=== PATIENT | female | born 1980 | race Caucasian/White ===

== ENCOUNTER 2023-10-01 12:53 | Day surgery (SDC) | payer BC ==
[2023-10-01] MEDS ORDERED: ALPRAZolam 0.5 MG TAB PO STA (13:16)
[2023-10-01 13:42] VITALS: TEMP 98
--- NOTE | 2023-10-01 14:48 | US ---
EXAMINATION TYPE: US FNA first lesion, US FNA each additional lesion DATE OF EXAM: 10/01/2023 2:38 PM CLINICAL INDICATION:Female, 43 years old with history of E04.2 NONTOXIC MULTINODULAR GOITER; , thyroi d nodule. COMPARISON: None ATTENDING: Dr. Aniket Malone PROCEDURE: 2 site thyroid biopsy. Informed consent was obtained. The risks and benefits of the procedure were discussed with the patien t. The site was marked. Timeout procedure was performed Ultrasound imaging of the thyroid demonstrates bilateral thyroid nodules. Site 1: The patient was prepped, draped in the usual sterile fashion, and locally anesthetized with 1% lidoca ine. Five fine needle aspiration were then performed with a 25 gauge needle. Samples were sent to [facility] pathology department for further analysis. Patient tolerated the procedure without incident and wa s sent home in stable condition. Site 2: The patient was prepped, draped in the usual sterile fashion, and locally anesthetized with 1% lidoca ine. Five fine needle aspiration were then performed with a 25 gauge needle. Samples were sent to [facility] pathology department for further analysis. Patient tolerated the procedure without incident and wa s sent home in stable condition. IMPRESSION: Successful ultrasound guided fine needle aspiration of the bilateral thyroid nodules.
[2023-10-01 14:57] VITALS: BP 97/65; PULSE 96; RESP 18
== END 2023-10-01 14:50 | disposition home or self-care (01) ==
LOC: RADPROMAIN 12:53
PROVIDERS: ATTEND Internal Medicine
DX: E04.2 Nontoxic multinodular goiter (principal)
CPT/HCPCS: 10005; 10006; 88173; 88305

== ENCOUNTER → 2024-02-28 | Outpatient (CLI) | payer BC ==
[2024-02-29 06:50] LABS: Basophils # (A) 0.04 X 10*3/uL (0.00-0.10); Basophils % (A) 0.6 %; Eosinophils # (A) 0.14 X 10*3/uL (0.04-0.35); Eosinophils % (A) 2.3 %; HCT 41.8 % (37.2-46.3); HGB 13.1 g/dL (12.0-15.0); Lymphocytes # (A) 1.94 X 10*3/uL (0.90-5.00); Lymphocytes % (A) 31.4 %; MCH 28.2 pg (27.0-32.0); MCHC 31.3 g/dL (32.0-37.0); MCV 90.1 FL (80.0-97.0); Mean Platelet Volume 12.5 FL (9.5-12.2); Monocytes % (A) 8.1 %; NRBC Per 100 WBC 0 X 10*3/uL (0.00-0.01); Neutrophils # (A) 3.54 X 10*3/uL (1.80-7.70); Neutrophils % (A) 57.4 %; Platelet Count 216 X 10*3/uL (140-440); RBC 4.64 X 10*6/uL (4.10-5.20); RDW 12.8 % (11.5-14.5); WBC 6.17 X 10*3/uL (4.50-10.00)
[2024-02-29 07:09] LABS: Blood Urea Nitrogen 11.4 mg/dL (9.0-27.0); Carbon Dioxide 23.5 mmol/L (21.6-31.8); Chloride 106 mmol/L (96-109); Glucose 92 mg/dL (70-110); Potassium 3.9 mmol/L (3.5-5.5); Sodium 141 mmol/L (135-145)
== END | disposition home or self-care (01) ==
LOC: LABPAT 10:56
PROVIDERS: ATTEND Obstetrics & Gynecology Obstetrics
DX: Z01.812 Encounter for preprocedural laboratory examination (principal); Q51.9 Congenital malformation of uterus and cervix, unspecified; N92.0 Excessive and frequent menstruation with regular cycle
CPT/HCPCS: 36415; 80051; 82565; 82947; 84520; 85025; 86850; 86900; 86901; 87086

== ENCOUNTER 2024-03-09 05:48 | Day surgery (SDC) | payer BC ==
[2024-03-09] MEDS: IV FLUID CONTINUATION 1,000 ML IV ONE (07:00)
[2024-03-09] MEDS ORDERED: HYDROmorphone 0.5 MG/0.5 ML SYRINGE IVP PRN (07:00)
[2024-03-09] MEDS ORDERED: MIDAZOLAM 2 MG/2 ML VIAL IV PRN (07:00)
[2024-03-09] MEDS: MIDAZOLAM 2 MG/2 ML VIAL IVP ONE (07:01)
[2024-03-09] MEDS: fentaNYL (PF) 50 MCG/ML 2 ML AMP IVP ONE (07:01)
[2024-03-09 07:13] VITALS: RESP 16
[2024-03-09] MEDS: DEXAMETHASONE SOD PHOSPHATE 4 MG/ML 1 ML VIAL IV ONE (07:14)
[2024-03-09] MEDS: ONDANSETRON 4 MG/2 ML VIAL IVP ONE (07:14)
[2024-03-09] MEDS: LACTATED RINGERS 1,000 ML IV SCH (07:14)
--- NOTE | 2024-03-09 07:25 | P.ANPRN ---
Procedure Note - Anesthesia - Epidural/Spinal Spinal Time Out Performed: Yes Date of Procedure: 03/09/24 Procedure Start Time: 07:00 Procedure Stop Time: 07:06 Location of Patient: PreOp Indication: Acute Post-Operative Pain, Requested by Surgeon ([email or web address]) Sedation Type: Sedate with meaningful contact maintained Preparation: Sterile Prep Number of Attempts: 1 Position: Sitting Catheter: None Needle Guage: 25 Injectate: Fentanyl 25mcg and Duramorph 300mcg Blood Aspirated: No Pain Paresthesia on Injection Noted: No Events: Uneventful and Well Tolerated
[2024-03-09] MEDS ORDERED: WATER FOR INJECTION, STERILE 10 ML VIAL IV ONE (07:30)
[2024-03-09] MEDS ORDERED: fentaNYL (PF) 50 MCG/ML 2 ML AMP ONE (07:30)
[2024-03-09] MEDS ORDERED: PHENYLEPHRINE 10 MG/ML VIAL ONE (07:30)
[2024-03-09] MEDS ORDERED: LIDOCAINE 1% INJ 10MG/ML (20 ML MDV) ONE (07:30)
[2024-03-09] MEDS ORDERED: SUCCINYLCHOLINE CHLORIDE 200 MG/10 ML VIAL IV ONE (07:30)
[2024-03-09] MEDS ORDERED: MIDAZOLAM 2 MG/2 ML VIAL ONE (07:30)
[2024-03-09] MEDS ORDERED: NEOSTIGMINE 1 MG/ML 10 ML VIAL ONE (07:30)
[2024-03-09] MEDS ORDERED: ROCURONIUM 10 MG/ML (5 ML VIAL) IV ONE (07:30)
[2024-03-09] MEDS ORDERED: ePHEDrine 50 MG/ML 1 ML VIAL ONE (07:30)
[2024-03-09] MEDS ORDERED: PROPOFOL 10 MG/ML 20 ML VIAL IV ONE (07:30)
[2024-03-09] MEDS ORDERED: GLYCOPYRROLATE 0.2 MG/ML 2 ML VIAL ONE (07:30)
--- NOTE | 2024-03-09 07:39 | P.HPOB ---
History of Present Illness H&P Date: 03/09/24 Chief Complaint: Heavy menstrual bleeding, bicornate uterus 44-year-old G2, P2 with known history of heavy menstrual bleeding and uterine anomaly presents for options of treatment for her uterine anomaly. Patient was told she had an arcuate uterus at the time of her sections. Patient initially was hoping for an endometrial ablation but given her uterine anomaly she is not a candidate for this. Patient has been using Lysteda but her menses remain monthly but 7 days long heavy with clots. Patient has a history of a bilateral salpingectomy in the past. 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 Menses regular heavy in nature lasting 7 days with clots despite Lysteda treatment Review of Systems Constitutional: Denies chills, Denies fatigue, Denies fever Ears, nose, mouth and throat: Denies headache Cardiovascular: Denies leg edema Respiratory: Denies dyspnea Gastrointestinal: Denies constipation, Denies diarrhea, Denies nausea, Denies vomiting Genitourinary: Denies Menstruation: Reports as per HPI, Reports period heavy Past Medical History Past Medical History: Thyroid Disorder Additional Past Medical History / Comment(s): vit d deficiency, depression., paliptations when lies down at night, felt to be low bp thyroid nodules, tested negative History of Any Multi-Drug Resistant Organisms: None Reported Past Surgical History: Section Past Anesthesia/Blood Transfusion Reactions: No Reported Reaction Smoking Status: Current every day smoker - Past Family History Father Family Medical History: No Reported History Mother Family Medical History: No Reported History Medications and Allergies Home Medications Medication Instructions Recorded Confirmed Type Tranexamic Acid [Lysteda] 650 mg PO QMONTHLY 09/25/23 03/05/24 History Amoxicillin/Clavulanate 1 tab PO DIRECTED 03/05/24 03/05/24 History Atomoxetine HCl [Strattera] 40 mg PO DAILY 03/05/24 03/05/24 History Vit D3 9unk) 1 tab PO DAILY 03/05/24 03/05/24 History Allergies Allergy/AdvReac Type Severity Reaction Status Date / Time No Known Allergies Allergy Verified 03/09/24 06:24 Exam Osteopathic Statement: *. No significant issues noted on an osteopathic structural exam other than those noted in the History and Physical/Consult. Vital Signs Temp Pulse Resp BP Pulse Ox 03/09/24 07:12 53 L 16 99/55 100 03/09/24 06:31 97.9 F 57 L 18 102/57 99 Intake and Output 03/08/24 03/09/24 03/09/24 22:59 06:59 14:59 Intake Total 400 Balance 400 Intake: IV 400 Other: Weight 57.1 kg Targeted physical exam is performed this date General is a well-nourished well- developed female in no acute distress, breathing is nonlabored, heart has a regular rate and rhythm, abdomen is soft and nontender, on genitourinary exam external genitalia is noted to be normal for age the vaginal mucosa is known to be pink and well-rugated the cervix is visualized without lesion or mass the uterus is bulky and mobile. No adnexal masses are appreciated Assessment and Plan (1) Bicornate uterus Current Visit: Yes Status: Acute Code(s): Q51.3 - BICORNATE UTERUS SNOMED Code(s): 82054822 (2) Heavy menstrual bleeding Current Visit: Yes Status: Acute Code(s): N92.0 - EXCESSIVE AND FREQUENT MENSTRUATION WITH REGULAR CYCLE SNOMED Code(s): 951865374 Plan: 44-year-old with known uterine anomaly and heavy menstrual bleeding despite medical treatment with Lysteda. Patient is interested in definitive treatment with hysterectomy. Patient is counseled on robotic assisted vaginal hysterectomy. Prior bilateral salpingectomy was performed. Risks are reviewed with patient including but not limited to infection, bleeding, damage to bladder given her 2 prior sections. Patient states understanding of these risks and wishes to proceed with robotic assisted vaginal hysterectomy, diagnostic cystoscopy.
[2024-03-09] MEDS: LACTATED RINGERS 1,000 ML IV ONE ×4 (08:10→09:01)
[2024-03-09] MEDS: BUPIVACAINE (PF) 0.25% 30 ML VIAL SQ ONE ×2 (08:38→09:01)
[2024-03-09] MEDS ORDERED: Acetaminophen-Codeine 300-30mg TAB PO PRN ×2 (09:16)
--- NOTE | 2024-03-09 09:26 | P.OP ---
Date of Procedure: 03/09/24 Preoperative Diagnosis: Heavy menstrual bleeding, bicornate uterus Postoperative Diagnosis: Same Procedure(s) Performed: Robotic assisted vaginal hysterectomy, diagnostic cystoscopy Anesthesia: LARSA Surgeon: Diamond Fernández Benzene Operator #1: Shabana Garland Estimated Blood Loss (ml): 25 IV fluids (ml): 2,000 Urine output (ml): 50 Pathology: other (Uterus cervix) Condition: stable Disposition: PACU Indications for Procedure: Heavy menstrual bleeding, failed medical treatment with Lysteda, given uterine anomaly not a candidate for endometrial ablation or IUD Operative Findings: Globular arcuate shaped uterus normal ovaries bilaterally with follicles On cystoscopy normal bladder mucosa was appreciated intact cavity with bladder bubble appreciated, both ureteral orifices were noted to be spilling clear yellow urine Description of Procedure: Patient was taken back to the operating suite where general anesthesia was obtained without difficulty by the anesthesia department. She was prepped and draped in the normal sterile fashion in the dorsolithotomy position. A Martínez catheter was placed under sterile technique. A weighted speculum is placed in the posterior vaginal vault, the anterior lip of the cervix was visualized grasped with a single-tooth tenaculum and the endocervical canal was then dilated. A Buzzwire uterine manipulator was advanced into the uterus as a means to manipulate the uterus throughout the procedure. The balloon was insufflated with air and the cervical cap was placed snugly against the cervix. All instruments were removed from the patient's vaginal vault. Attention was then turned to the patient's abdomen where approximately 2 fingerbreadths above the umbilicus a small skin incision is made. Through this incision the Veress needle was placed. Once the Veress needle was deemed to be in the appropriate position with a drop of CO2 pressure with the insufflation of CO2 gas CO2 insufflation was allowed to occur. At this time the additional port sites were placed 10 cm lateral and 3 cm inferior to midline port these are operative ports placed under direct visualization. In the left upper quadrant a 12 mm trocar and sleeve was placed under direct visualization. The uterus is elevated and the utero-ovarian ligament on the left was visualized coagulated and transected this continued through the broad toward the round which was coagulated and transected. The bladder flap from the left was then created using sharp and blunt dissection. The vascular pedicle at the cervical uterine junction was visualized coagulated and transected. Attention then turned to the patient's right utero-ovarian ligament which was visualized coagulated distally and proximally and divided. This continued through the broad and toward the round ligament which was coagulated distally and proximally and divided. Hemostasis was appreciated. The bladder flap from the right was then created using sharp and blunt dissection. At this time a Ray-Jina was passed into the abdomen as a means to dissect the bladder further away from the operating field. This was then removed. The vascular pedicle on the right was visualized coagulated and transected. Hemostasis was noted. At this time the only remaining attachment was a vaginal attachment therefore colpotomy incision was made in a circumferential fashion. The uterus and cervix was delivered through the vaginal opening. The pelvis was then copiously irrigated. The vaginal cuff was closed with 0 Vicryl in a [id number] fashion. Approximately 5 sutures were used to obtain closure. The vaginal cuff was inspected hemostasis was noted. At this time all instruments were removed from the patient's abdomen, the robot was undocked in the usual fashion. Attention was then turned to the patient's Martínez catheter clear yellow urine was noted in the Martínez tubing, Martínez was removed without difficulty. Cystoscope was performed. Cystoscope was placed through the urethra toward the bladder bladder bubble was appreciated. Both ureteral orifices were noted to be spilling clear yellow urine. The cystoscope was removed. Martínez catheter was replaced. Attention was then turned the patient's abdomen where the skin incisions were closed with 4-0 Vicryl in a subcuticular fashion. Steri-Strips and sterile dressings were applied. All counts were noted be correct x 2. Patient tolerated procedure well and was taken the recovery room awake in stable condition.
[2024-03-09] MEDS: ACETAMINOPHEN IV (For NPO) 1,000 MG in EMPTY BAG 1 BAG IVPB ONE (10:38)
[2024-03-09] MEDS: SCOPOLAMINE 1 MG/72 HR PATCH TRANSDERM ONE (10:39)
[2024-03-09] MEDS: AMOXIC-POT CLAV 875-125MG 1 EACH TAB PO SCH (11:18)
[2024-03-09] MEDS: IBUPROFEN IV 800 MG in SODIUM CHLORIDE 0.9% 250 ML IV ONE (11:18)
[2024-03-09] MEDS: ONDANSETRON 4 MG/2 ML VIAL IVP PRN (15:38)
[2024-03-09] MEDS: IBUPROFEN 600 MG TAB PO PRN (19:33)
--- NOTE | 2024-03-10 05:26 | P.DS ---
Providers Date of admission: 03/09/2024 Expected date of discharge: 03/10/24 Attending physician: Diamond Fernández Primary care physician: Gagan Stoll MD - Discharge Diagnosis(es) (1) Bicornate uterus Current Visit: Yes Status: Acute (2) Heavy menstrual bleeding Current Visit: Yes Status: Acute (3) Status post laparoscopic hysterectomy Current Visit: Yes Status: Acute Hospital Course: 44-year-old female that presented to the hospital yesterday on 03/09 for scheduled robotic assisted vaginal hysterectomy with diagnostic cystoscopy. Patient had a known uterine anomaly with bicornate uterus, heavy menstrual bleeding. For full details in this patient please the dictated history and physical. Patient was taken back to the operating room for scheduled procedure. Procedure was completed without difficulty. For full details on the procedure please see the dictated operative report. Patient's postoperative course has been uneventful. On this postoperative day #1 she is ambulating without difficulty. Martínez remains in will be discontinued this morning. She states her pain is controlled with oral ibuprofen. She denies vaginal bleeding. She is tolerating a regular diet. She would like discharge home later today. Patient Condition at Discharge: Good Plan - Discharge Summary Discharge Rx Participant: No New Discharge Prescriptions: No Action Tranexamic Acid [Lysteda] 650 mg PO QMONTHLY Vit D3 9unk) 1 tab PO DAILY Atomoxetine HCl [Strattera] 40 mg PO DAILY Amoxicillin/Clavulanate 1 tab PO DIRECTED Discharge Medication List Tranexamic Acid [Lysteda] 650 mg PO QMONTHLY 09/25/23 [History] Amoxicillin/Clavulanate 1 tab PO DIRECTED 03/05/24 [History] Atomoxetine HCl [Strattera] 40 mg PO DAILY 03/05/24 [History] Vit D3 9unk) 1 tab PO DAILY 03/05/24 [History] Follow up Appointment(s)/Referral(s): Diamond Fernández DO [Doctor of Osteopathic Medicine] - 2 Weeks Patient Instructions/Handouts: Laparoscopic Hysterectomy (DC), Laparoscopic Hysterectomy (GEN) Activity/Diet/Wound Care/Special Instructions: No intercourse, tampons or tub baths. No heavy lifting greater than a gallon of milk. No driving for two weeks. Call with any fever, shakes or chills, with any pain not alleviated by over the counter meds, or with any quesions or concerns. [id number] ibuprofen 600 mg or 3 tablets every 6 hours as needed for pain. Discharge Disposition: HOME SELF-CARE
[2024-03-10] MEDS: SIMETHICONE 80 MG CHEWABLE PO PRN (08:27)
[2024-03-10 08:33] VITALS: BP 97/60; PULSE 76; TEMP 98.6
[2024-03-10 08:55] LABS: Basophils % (A) 0 %; Eosinophils # (A) 0.2 k/uL (0-0.7); Eosinophils % (A) 1 %; HCT 35.5 % (34.0-46.0); Lymphocytes # (A) 2.3 k/uL (1.0-4.8); Lymphocytes % (A) 20 %; MCH 30.1 pg (25.0-35.0); MCHC 33.7 g/dL (31.0-37.0); MCV 89.3 fL (80.0-100.0); Mean Platelet Volume 10.3; Monocytes # (A) 0.8 k/uL (0-1.0); Monocytes % (A) 7 %; Neutrophils % (A) 70 %; Platelet Count 159 k/uL (150-450); RBC 3.97 m/uL (3.80-5.40); RDW 12.9 % (11.5-15.5); WBC 11.4 k/uL (3.8-10.6)
[2024-03-10] MEDS ORDERED: ACETAMINOPHEN TAB 325 MG TAB PO PRN (09:18)
[2024-03-10] MEDS: NON FORMULARY DRUG (Atomoxetine Hcl [Strattera] 40 MG Capsule) PO SCH (09:43)
== END 2024-03-10 12:35 | disposition home or self-care (01) ==
LOC: OR 05:48 → 4FBP 09:10 → OR 03-10 12:35
PROVIDERS: ATTEND Obstetrics & Gynecology Obstetrics
DX: N92.0 Excessive and frequent menstruation with regular cycle (principal); G89.18 Other acute postprocedural pain; Q51.3 Bicornate uterus; Q51.810 Arcuate uterus; E07.9 Disorder of thyroid, unspecified; F32.A Depression, unspecified; E55.9 Vitamin D deficiency, unspecified; F17.200 Nicotine dependence, unspecified, uncomplicated; Z98.891 History of uterine scar from previous surgery
CPT/HCPCS: 58550; S2900; 81025; 85025; 88307